=== PATIENT | female | born 1980 | race Caucasian/White ===

== ENCOUNTER 2021-11-04 16:02 | Emergency (ER) | payer BC ==
[~2021-11-04] VITALS: Ht 172.7 cm; Wt 81.8 kg
[2021-11-04 16:07] VITALS: BP 132/90
[2021-11-04] MEDS ORDERED: HYDROcodone/acetaminophen 5mg/325mg tablet PO ONE (16:45)
[2021-11-04] MEDS ORDERED: ondansetron 4mg rapidly disintigrating tab PO ONE (16:45)
== END 2021-11-04 17:14 | disposition home or self-care (01) ==
LOC: ER 16:04
DX: S93.402A Sprain of unspecified ligament of left ankle, initial encounter (principal); M25.572 Pain in left ankle and joints of left foot; X58.XXXA Exposure to other specified factors, initial encounter; Y93.01 Activity, walking, marching and hiking; Y92.89 Other specified places as the place of occurrence of the external cause; Y99.8 Other external cause status
CPT/HCPCS: 29515; 73610; 99284